=== PATIENT | female | born 2000 | race Caucasian/White ===

== ENCOUNTER 2022-09-13 10:02 | Outpatient (CLI) | payer BC, SELFPAY ==
--- NOTE | 2022-09-13 10:15 | CRLHL7_ITS ---
For Patients: As a result of the Century Cures Act, medical imaging exams and procedure reports are released immediately into your electronic medical record. You may view this report before your referring provider. If you have questions, please contact your health care provider. Indication: prominent lump right groin x5+ years Technique: Grayscale and color Doppler ultrasound of the right groin soft tissues performed in the area of concern. Comparison: None Findings: There is a normal subcutaneous lymph node corresponding to the area of concern. This lymph node has normal morphology with a normal central fatty hilum and normal internal vascularity. The cortex is not thickened. This lymph node measures 1.2 x 0.5 x 0.7 cm. Impression: Normal right inguinal lymph node. Dictated by Rikki Thomason MD @ 09/13/2022 11:13:11 AM (Electronically Signed)
== END 2022-09-13 10:03 | disposition home or self-care (01) ==
LOC: US 10:03
PROVIDERS: PCP Family Medicine; Visit Provider Registered Nurse
DX: R19.09 Other intra-abdominal and pelvic swelling, mass and lump (principal)
CPT/HCPCS: 76882; 86592; 86703; 86803; 87340; 87491; 87591

== ENCOUNTER 2023-07-31 12:37 | Outpatient (CLI) | payer BC, SELFPAY | END 2023-07-31 12:38 | disposition home or self-care (01) | PROVIDERS: PCP Family Medicine; Visit Provider Registered Nurse | DX: Z01.419 Encounter for gynecological examination (general) (routine) without abnormal findings (principal); Z13.6 Encounter for screening for cardiovascular disorders; Z13.9 Encounter for screening, unspecified | CPT/HCPCS: 80048; 80061 ==

== ENCOUNTER 2024-08-01 10:41 | Outpatient (CLI) | payer BC, SELFPAY | END 2024-08-01 10:42 | disposition home or self-care (01) | PROVIDERS: PCP Family Medicine; Visit Provider Registered Nurse | DX: Z01.419 Encounter for gynecological examination (general) (routine) without abnormal findings (principal); R53.83 Other fatigue; Z13.820 Encounter for screening for osteoporosis; Z13.9 Encounter for screening, unspecified | CPT/HCPCS: 80048; 82306; 84443 ==